=== PATIENT | male | born 1960 | race Caucasian/White ===

== ENCOUNTER 2023-11-10 09:45 | Outpatient (CLI) | payer OTHER | END 2023-11-10 23:59 | disposition critical access hospital (66) | LOC: EMS 09:45 | PROVIDERS: ATTEND Emergency Medicine | DX: M54.6 Pain in thoracic spine (principal); M25.512 Pain in left shoulder; M79.645 Pain in left finger(s); R51.9 Headache, unspecified; S50.312A Abrasion of left elbow, initial encounter; W17.89XA Other fall from one level to another, initial encounter; Y92.69 Other specified industrial and construction area as the place of occurrence of the external cause; Y99.0 Civilian activity done for income or pay | CPT/HCPCS: A0425; A0429 ==

== ENCOUNTER 2023-11-10 10:08 | Emergency (ER) | payer OTHER ==
--- NOTE | 2023-11-10 10:23 | ED Physician Documentation ---
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 Pain in thoracic and left shoulder area. Also left elbow and hand. Denies injury head nor neck.) Where injury occurred: Work Timing - onset: Today Injury(ies) location: Neck, Back (thoracic and scapular area.Some pain lower back as well.), Left Uppper Extremity (posterior shoulder, elbow and hand.). No: Head, Chest, Abdomen Pain level max: 6 Pain level now: 6 Quality of pain: Pain Associated symptoms: No: LOC, AMS, Weakness, Paresthesias Worsens with: Movement Contributing factors: No: Anticoagulated, Intoxicated Similar symptoms before: Has not had sx before Recently seen: Not recently seen Review of Systems Constitutional: denies: Fever, Chills, Myalgias Cardiac: denies: Chest pain / pressure, Palpitations Respiratory: denies: Dyspnea, Cough GI: reports: Nausea. denies: Vomiting, Diarrhea Neurologic: denies: Focal weakness, Numbness, Confused, Altered mental status PD PAST MEDICAL HISTORY - Past Medical History Cardiovascular: None Respiratory: None Neuro: None Endocrine/Autoimmune: None - Present Medications Home Medications: Ambulatory Orders Medication Instructions Recorded Confirmed Lisinopril [Zestril] 10 mg PO DAILY 11/10/23 11/10/23 Meloxicam [Mobic] 7.5 mg PO BID 10 Days #20 tablet 11/10/23 Oxycodone HCl/Acetaminophen 1 each PO Q6H PRN #20 tablet 11/10/23 [Percocet 5-325 mg Tablet] methocarbamoL [Robaxin] 500 mg PO Q6H PRN #30 tablet 11/10/23 - Allergies Allergies/Adverse Reactions: Allergies Allergy/AdvReac Type Severity Reaction Status Date / Time No Known Drug Allergies Allergy Verified 11/10/23 10:29 PD ED PE NORMAL - Vitals Vital signs reviewed: Yes - General General: Alert and oriented X 3, Well developed/nourished, Other (arrives backboard with collar and straps. ) - HEENT HEENT: Atraumatic - Neck Neck: Supple, no meningeal sign, No bony TTP (but some left lateral muscle tenderness of neck. ), No adenopathy - Cardiac Cardiac: RRR, No murmur - Respiratory Respiratory: No respiratory distress, Clear bilaterally, Other (no anterior chestwall tenderness. ) - Abdomen Abdomen: Normal bowel sounds, Soft, Non tender - Back Back: Other (tender to palpation in thoracic spine area, most all of it, with most of it at the left lower scapular area. Some tender posterior shoulder. ) - Derm Derm: Normal color, Warm and dry - Extremities Extremities: Other (lower extremities good ROM and strength/sensation without injury apparent. 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 Elbow with some psoriatic rash. But also abrasion or small puncture. No joint effusion. ) - Neuro Neuro: Alert and oriented X 3, No motor deficit, Normal speech Eye Opening: Spontaneous Motor: Obeys Commands Verbal: Oriented GCS Score: 15 Results - Vitals Vitals: Vital Signs - 24 hr 11/10/23 11/10/23 11/10/23 10:18 12:28 13:58 Temperature 36.6 C 36.8 C 36.8 C Heart Rate 90 87 86 Respiratory 20 18 16 Rate Blood Pressure 155/96 H 160/88 H 140/80 H O2 Saturation 99 98 100 Oxygen O2 Source Room air - Labs Labs: Laboratory Tests 11/10/23 11/10/23 10:26 10:26 WBC 6.0 RBC 4.75 Hgb 14.4 Hct 41.4 L MCV 87.2 MCH 30.3 MCHC 34.8 RDW 11.9 L Plt Count 290 MPV 8.7 Neut # (Auto) 4.0 Lymph # (Auto) 0.[address] [place] # (Auto) 0.5 Eos # (Auto) 0.2 Baso # (Auto) 0.1 Absolute Nucleated RBC 0.00 Nucleated RBC % 0.0 Sodium 134 L Potassium 3.8 Chloride 104 Carbon Dioxide 23 Anion Gap 7.0 BUN 15 Creatinine 0.8 Estimated GFR (MDRD) 97 Glucose 132 H Calcium 9.6 Total Bilirubin 0.5 AST 22 ALT 23 Alkaline Phosphatase 71 Total Protein 7.1 Albumin 4.1 Globulin 3.0 Albumin/Globulin Ratio 1.4 Lipase 23 - Rads (name of study) chest xray Relevant Findings:: Prelim report reviewed, EMP independent interpretation of test (no acute findings) left shoulder Relevant Findings:: Prelim report reviewed, EMP independent interpretation of test (no noted fractures) left hand Relevant Findings:: Prelim report reviewed, EMP independent interpretation of test (base of 5th with nondiplaced fracture. ) head CT Relevant Findings:: Prelim report reviewed (no ICH nor acute njury), EMP independent interpretation of test cervical spine CT Relevant Findings:: Prelim report reviewed (no fractures nor acute injury), EMP independent interpretation of test torso CT Relevant Findings:: Prelim report reviewed, EMP independent interpretation of test (no organ injuries of chest/abd/pelvis. Osseous shows lower scapular nondiplaced comminuted fracture. ) Procedures - Splint (location) - Minor left ahnd Splint applied by: Tech Type of splint: Fiberglass, Sugar tong Other: Patient tolerated well, No complications, Neurovascular intact, Sling provided PD Medical Decision Making - ED course Complexity details: considered differential, d/w patient, d/w project consultant (phone consult with Dr. Marino about thescapular findings since less common of a fracture. Sling and pain meds given. He is alerr and conversant. ), other (EMS) Reviewed Lab Results: cervical collar removed after CT of cervical spine appears normal. Small amount pain neds Remained alert and conversant, good vitals and HR, through the assesssment. He was given IV fluids at maintenance rate. Dose Dilaudidw with Toradol given IV with gbood improvement of the backpain. No neuro deficit noted with the back injury. LUngs remain clear and abd soft. With the hand xray showing fracture, I did have Teech put on ulnar gutter spint. Thne sling added with the noted scapular fracture. Departure - Departure Disposition: 01 Home, Self Care Clinical Impression: Injury resulting from fall from height Scapular fracture Qualifiers: Encounter type: initial encounter Scapula location: body Fracture type: closed Fracture alignment: nondisplaced Laterality: left Qualified Code(s): S42.115A - Nondisplaced fracture of body of scapula, left shoulder, initial encounter for closed fracture Back contusion Qualifiers: Encounter type: initial encounter Laterality: left Qualified Code(s): S20.222A - Contusion of left back wall of thorax, initial encounter Metacarpal bone fracture Qualifiers: Encounter type: initial encounter Metacarpal bone: fifth Fracture type: closed Metacarpal location: base Fracture alignment: nondisplaced Laterality: left Qualified Code(s): S62.347A - Nondisplaced fracture of base of fifth metacarpal bone, left hand, initial encounter for closed fracture Condition: Stable Record reviewed to determine appropriate education?: Yes Instructions: ED Fx Hand Closed, ED Fx Shoulder Prescriptions: Meloxicam [Mobic] 7.5 mg PO BID 10 Days #20 tablet Oxycodone HCl/Acetaminophen [Percocet 5-325 mg Tablet] 1 each PO Q6H PRN #20 tablet PRN Reason: pain methocarbamoL [Robaxin] 500 mg PO Q6H PRN #30 tablet PRN Reason: Spasms Comments: On imaging you do have a fracture of the scapula body. You are having pain in the shoulder area itself so there likely can be some element of soft tissue injury such as rotator cuff strain or etc. He also have a fracture in the base of the fifth metacarpal in the hand. Keep the splint on the hand and use the sling for the shoulder until follow-up. I would suggest following up with orthopedics in about 1 to 1-1/2 weeks, call for an appointment for your local area or referral through your primary care if you need to do that. Regular anti-inflammatories such as meloxicam or naproxen or ibuprofen. I wrote a prescription for 1 called meloxicam twice daily for the next 2 weeks. Also there can be a lot of muscle spasming through the shoulder so Robaxin muscle relaxant as directed. To that add Tylenol 500 650 mg 4 times daily for pain or oxycodone/acetaminophen in the short-term for worse pain. I would anticipate tapering off of the pains over the initial several days to week to just needing more simple medicine at that point. I Was unable to send your prescriptions to your preferred pharmacy as [place] I printed them off instead and you will need to just bring them to your pharmacy. I am prescribing a short course of narcotic pain medication for you. These are potentially dangerous and addictive medications that should be used carefully. These medications may constipate you. Take an xiaw-uhh-voyvlbu stool softener such as docusate twice daily with plenty of water while taking these medications. If you go 24 hours without a bowel movement, take sjwu-hvn-hyrbejw MiraLAX, per package instructions. Do not drink or drive while taking these medications. If you received narcotic or sedating medications while in the emergency department do not drive for 24 hours. Store this medication in a safe, secure place and out of reach of children. It is a violation of federal law to give or sell this medication to another person or to use in a manner other than prescribed. The ED will not refill narcotic prescriptions, including prescriptions lost or stolen. You can dispose of unwanted medications at the [facility]'s office or at several pharmacies such as [place]. Forms: Activity restrictions Discharge Date/Time: 11/10/23 13:58
[2023-11-10 10:32] LABS: BASOPHILS # (AUTO) 0.1 10^3/uL (0.0-0.1); EOSINOPHILS # (AUTO) 0.2 10^3/uL (0.0-0.7); EOSINOPHILS % (AUTO) 3.7 %; HCT - HEMATOCRIT 41.4 % (42.0-52.0); HGB - HEMOGLOBIN 14.4 g/dL (14.0-18.0); LYMPHOCYTES # (AUTO) 0.9 10^3/uL (1.5-3.5); LYMPHOCYTES % (AUTO) 15.5 %; MEAN CORPUSCULAR HEMOGLOBIN 30.3 pg (27.0-31.0); MEAN CORPUSCULAR HGB CONC 34.8 g/dL (32.0-36.0); MEAN CORPUSCULAR VOLUME 87.2 fL (80.0-94.0); MEAN PLATELET VOLUME 8.7 fL (7.4-11.4); MONOCYTES # (AUTO) 0.5 10^3/uL (0.0-1.0); PLT - PLATELET COUNT 290 10^3/uL (130-450); RED BLOOD COUNT 4.75 10^6/uL (4.70-6.10); RED CELL DISTRIBUTION WIDTH 11.9 % (12.0-15.0)
--- NOTE | 2023-11-10 10:44 | XRAY Report ---
PROCEDURE: Chest 1V INDICATIONS: fall, left thoracic pain TECHNIQUE: One view of the chest was acquired. COMPARISON: None. FINDINGS: Surgical changes and devices: None. Lungs and pleura: No pleural effusions or pneumothorax. Lungs are clear. Mediastinum: Mediastinal contours appear normal. Heart size is normal. Bones and chest wall: No suspicious bony lesions. Overlying soft tissues appear unremarkable. No o bvious displaced rib fracture. IMPRESSION: No acute cardiopulmonary process. No pneumothorax or obvious displaced rib fracture. Reviewed by: Thiago Sorenson MD on 11/10/2023 10:43 AM PDT Approved by: Thiago Sorenson MD on 11/10/2023 10:43 AM PDT Station ID: [id number]
[2023-11-10] MEDS: KETOROLAC 15 MG/ML VIAL IVP STA (10:45)
[2023-11-10] MEDS: HYDROmorphone 0.5 MG/0.5 ML SYRINGE IVP STA (10:45)
[2023-11-10 10:46] LABS: ALBUMIN 4.1 g/dL (3.2-5.5); ALBUMIN/GLOBULIN RATIO 1.4 (1.0-2.2); BILIRUBIN,TOTAL 0.5 mg/dL (0.2-1.0); CALCIUM 9.6 mg/dL (8.5-10.3); CREATININE 0.8 mg/dL (0.6-1.3); POTASSIUM 3.8 mmol/L (3.5-4.5); TOTAL PROTEIN 7.1 g/dL (6.4-8.9)
--- NOTE | 2023-11-10 10:47 | XRAY Report ---
PROCEDURE: Hand 3+V LT INDICATIONS: fall, pain hand TECHNIQUE: 3 views of the hand acquired. COMPARISON: None. FINDINGS: Bones: Minimally displaced fracture at the base of the 5th metacarpal without definite extension to the carpometacarpal joint. Osseous structures are otherwise intact. Background arthritic changes are present. Soft tissues: Soft tissue edema is seen at the ulnar aspect of the hand. IMPRESSION: Minimally displaced oblique fracture of the proximal 5th metacarpal without definite intra-articular extension. Reviewed by: Thiago Sorenson MD on 11/10/2023 10:45 AM PDT Approved by: Thiago Sorenson MD on 11/10/2023 10:45 AM PDT Station ID: [id number]
--- NOTE | 2023-11-10 10:48 | XRAY Report ---
PROCEDURE: Shoulder 2+V LT INDICATIONS: fall, shoulder pain TECHNIQUE: 3 views of the shoulder were acquired. COMPARISON: None. FINDINGS: Bones: No acute fractures or dislocations. No suspicious bony lesions. Visualized ribs appear inta ct. Mild to moderate acromioclavicular joint osteoarthrosis. Soft tissues: No suspicious soft tissue calcifications. The visualized lungs are within normal limi ts. Mildly radiodense clothing material is seen projecting over the shoulder. IMPRESSION: No acute osseous abnormality. If symptoms persist or there is continued clinical concern, further ezequiel luation with MRI or CT may be helpful. Reviewed by: Thiago Sorenson MD on 11/10/2023 10:47 AM PDT Approved by: Thiago Sorenson MD on 11/10/2023 10:47 AM PDT Station ID: [id number]
[2023-11-10] MEDS ORDERED: iohexoL-300 100 ML VIAL ONE (10:54)
--- NOTE | 2023-11-10 12:12 | CT Report ---
PROCEDURE: Cervical Spine WO INDICATIONS: fall 5 ft onto back TECHNIQUE: Noncontrast 3 mm thick sections acquired from the skull base to the T4 level. Sagittal and coronal r eformats were then constructed. For radiation dose reduction, the following was used: automated exp osure control, adjustment of mA and/or kV according to patient size. COMPARISON: None. FINDINGS: Image quality: Excellent. Bones: No fractures or dislocations. Loss of disc height, degenerative endplate changes and bilater al uncovertebral hypertrophic changes are seen. Dorsal disc osteophyte complex formation at C4-5 thro ugh C6-7 levels are seen causing dkfg-ju-[id number] central canal stenosis and mild bilateral neural fo raminal. Visualized superior ribs are intact. Soft tissues: Prevertebral soft tissues are normal in thickness. No paravertebral hematomas. No ap ical pneumothoraces. IMPRESSION: 1. No acute cervical spine fracture or dislocation. 2. Degenerative disc disease throughout cervical spine more notably at C4-5 through C6-7 levels as ab ove. Reviewed by: Rangel Hooks MD on 11/10/2023 12:11 PM PDT Approved by: Rangel Hooks MD on 11/10/2023 12:11 PM PDT Station ID: [id number]
--- NOTE | 2023-11-10 12:13 | CT Report ---
PROCEDURE: Head WO INDICATIONS: fall 5 ft onto back TECHNIQUE: Noncontrast 4.5 mm thick angled axial sections acquired from the foramen magnum to the vertex. For r adiation dose reduction, the following was used: automated exposure control, adjustment of mA and/or kV according to patient size. COMPARISON: None FINDINGS: Image quality: Excellent. CSF spaces: Basal cisterns are patent. No extra-axial fluid collections. The ventricles are symmet stacey in size and shape. Brain: No intracranial bleeds or masses. There is cerebral volume loss for age, with resultant vent ricular and sulcal prominence. There are periventricular and deep white matter chronic small vessel ischemic changes. There is intracranial internal carotid artery atherosclerosis. Skull and face: Calvarium and visualized facial bones appear intact, without suspicious lesions. Sinuses: Visualized sinuses and mastoids are clear. IMPRESSION: No acute intracranial pathology. Reviewed by: Rangel Hooks MD on 11/10/2023 12:12 PM PDT Approved by: Rangel Hooks MD on 11/10/2023 12:12 PM PDT Station ID: [id number]
--- NOTE | 2023-11-10 12:26 | CT Report ---
PROCEDURE: Abdomen/Pelvis W INDICATIONS: fall 5 ft onto back CONTRAST: Omni 300 100ml TECHNIQUE: After the administration of intravenous contrast, a CT scan of the abdomen and pelvis was performed. Images were recorded and evaluated at appropriate window settings. Reformats: coronal and sagittal. F or radiation dose reduction, the following was used: automated exposure control, adjustment of mA and /or kV according to patient size. COMPARISON: None. FINDINGS: Image quality: Diagnostic. Lower chest: Please correlate with CT chest findings from the same day.. Liver: No solid mass. No evidence of liver laceration. Gallbladder: No radiopaque stones or wall thickening. Biliary tree: No intrahepatic or extrahepatic dilation, accounting for age. Spleen: No splenomegaly. No evidence of splenic laceration. Pancreas: No pancreatic ductal dilation. Adrenals: No adrenal nodule. Kidneys and ureters: No hydronephrosis. No renal cystic lesion which requires follow up. Small left r enal cortical cyst is seen. No perinephric fat stranding or fluid. No solid mass. Stomach, bowel and peritoneum: No gastric or small bowel dilation. No abnormal wall thickening. No pa thologic free fluid. No peritoneal free air. Lymph nodes: No central or retroperitoneal adenopathy. Vessels: No infrarenal aortic aneurysm. Patent portal vein. PELVIS Reproductive organs: Unremarkable. Bladder: No abnormal wall thickening, accounting for underdistention. Pelvic lymph nodes: No pelvic adenopathy by size criteria. Bones: No aggressive osseous abnormality. No acute pelvic fracture or dislocation. Osteoarthritic ernesto nges throughout the bony pelvis is seen. No acute compression fracture is seen in lower thoracic and lumbar spine. 5 mm anterolisthesis of L4 on L5 is seen. Chronic appearing anterior wedge compression deformity at T11 and T10 levels are seen. Other: Small umbilical hernia is seen containing fat only. No significant ventral hernia. IMPRESSION: 1. No evidence of acute solid organ injury in abdomen or pelvis. No free fluid of free air. 2. No acute fracture or dislocation is seen in abdomen or pelvis. No acute vertebral body compression fracture. Chronic appearing mild anterior wedge compression deformities at T10 and T11 levels. Grade 1 anterolisthesis of L4 on L5. Reviewed by: Rangel Hooks MD on 11/10/2023 12:24 PM PDT Approved by: Rangel Hooks MD on 11/10/2023 12:24 PM PDT Station ID: [id number]
--- NOTE | 2023-11-10 12:39 | CT Report ---
PROCEDURE: Chest W INDICATIONS: fall 5 ft onto back CONTRAST: Omni 300 100ml TECHNIQUE: After the administration of intravenous contrast, a CT scan of the chest was performed. Images were recorded and evaluated at appropriate window settings. Reformats: axial MIP of the chest, coronal and sagittal. For radiation dose reduction, the following was used: automated exposure control, adjustme nt of mA and/or kV according to patient size. COMPARISON: None. FINDINGS: Image quality: Diagnostic. Chest wall and lower neck: No thyroid nodule which requires sonographic follow up. No breast mass. No axillary or supraclavicular adenopathy by size. Lungs and pleura: Dependent atelectasis in posterior aspect of bilateral lower lung evans are seen. 5 mm partially calcified nodule is seen adjacent to posterior lateral pleura of right lower lobe seri es 4 image 67. 6 mm calcified granuloma is also noted in posterior lateral aspect of left lower lobe series 4 image 77. No pleural effusion or pneumothorax. Central and peripheral airway is patent. Simulation Specialist dinora edematous changes are seen. Mediastinum: Heart size is normal. No pericardial effusion. No large vessel abnormality. No mediastin al adenopathy by size criteria. No mediastinal hematoma. Bones: No aggressive osseous abnormality. No displaced rib fracture. Slightly comminuted and displace d fracture involving medial portion of mid to distal scapular is seen series 2 image 40. No acute jasson tebral body compression fracture. Chronic appearing anterior wedge compression deformity involving T1 0 and T11 vertebral bodies are seen. Likely intraosseous hemangioma involving T9 vertebral body. Upper Abdomen: Unremarkable. IMPRESSION: 1. Acute comminuted and slightly displaced fracture involving medial portion of mid to inferior left scapular body. No other acute fracture or dislocation is seen in bony thorax. Chronic appearing mild anterior wedge compression deformity at T11 and T10 levels. 2. Dependent atelectasis in posterior aspect of bilateral lower lung evans. No pleural effusion or p neumothorax. COPD. Calcified granuloma in bilateral lower lobes as described above. Airway is patent. 3. No mediastinal hematoma. No pericardial effusion. No mediastinal or hilar lymphadenopathy. Reviewed by: Rangel Hooks MD on 11/10/2023 12:37 PM PDT Approved by: Rangel Hooks MD on 11/10/2023 12:37 PM PDT Station ID: [id number]
[2023-11-10] MEDS: HYDROmorphone 1 MG/ML CARPUJECT IVP STA (12:58)
[2023-11-10] MEDS: iohexoL-300 100 ML VIAL IVP ONE (13:28)
[2023-11-10 14:06] VITALS: BP 140/80; O2SAT 100
== END 2023-11-10 13:58 | disposition home or self-care (01) ==
LOC: ED 10:08
DX: S42.115A Nondisplaced fracture of body of scapula, left shoulder, initial encounter for closed fracture (principal); S62.347A Nondisplaced fracture of base of fifth metacarpal bone, left hand, initial encounter for closed fracture; S20.229A Contusion of unspecified back wall of thorax, initial encounter; W17.89XA Other fall from one level to another, initial encounter; Y99.0 Civilian activity done for income or pay
CPT/HCPCS: 29125; 36415; 70450; 71045; 71260; 72125; 73030; 73130; 74177; 80053; 83690; 85025; 96374; 96376; 99284; 99285; J1170; Q9967